=== PATIENT | female | born 1970 | race Caucasian/White ===

== ENCOUNTER 2016-04-06 08:15 | Emergency (ER) | payer BC ==
[~2016-04-06] VITALS: Ht 170.2 cm; Wt 118.0 kg
[~2016-04-06 08:15] MED LIST: AMOXMIS3 PO; LEVO150T PO; OMEP40CA36 PO
[2016-04-06 08:18] VITALS: TEMP 36.7; Ht 170.2 cm; Wt 118.0 kg
[2016-04-06] MEDS ORDERED: ONDANSETRON INJ 2 MG/ML 2 ML VIAL IV STA (08:57)
[2016-04-06] MEDS ORDERED: MECLIZINE HCL 25 MG TAB PO STA (08:57)
[2016-04-06] MEDS ORDERED: SODIUM CHLORIDE 0.9% 1000ML 1,000 ML IV ONE (09:00)
[2016-04-06] MEDS ORDERED: OMEP40CA41 PO (09:21)
[2016-04-06 09:31] LABS: BASO % 0.6 %; BASO ABS # 0.04 K/uL (0-0.2); COMPLETE YES; EOS % 0.7 %; HEMATOCRIT 38.3 % (37-47); IG% 0.3 %; LYMPH % 24.6 %; LYMPH ABS # 1.73 K/uL (1.2-3.4); MEAN CELL VOLUME 89.1 fL (80-100); MEAN CORPUSCULAR HEMOGLOBIN 31.4 pg (25-34); MEAN CORPUSCULAR HGB CONC 35.2 g/dl (32-36); MEAN PLATELET VOLUME 10.6 fL (7.4-10.4); MONO % 7.7 %; NEUT % 66.1 %; PLATELET COUNT 196 K/uL (130-400); WHITE BLOOD COUNT 7.04 K/uL (4.8-10.8)
[2016-04-06 09:47] LABS: PROTHROMBIN TIME (PATIENT) 10.2 SECONDS (9.0-12.0)
[2016-04-06 09:58] LABS: ALKALINE PHOSPHATASE 82 U/L (45-117); ALT/SGPT 32 U/L (12-78); AST/SGOT 15 U/L (15-37); BLOOD UREA NITROGEN 10 mg/dl (7-18); BUN/CREATININE RATIO 16.1 (10-20); CALCIUM 9.7 mg/dl (8.5-10.1); CARBON DIOXIDE 25 mmol/L (21-32); CHLORIDE 107 mmol/L (98-107); CREATININE 0.61 mg/dl (0.60-1.20); GLUCOSE 107 mg/dl (70-99); POTASSIUM 4.3 mmol/L (3.5-5.1); SODIUM 141 mmol/L (136-145)
[2016-04-06 10:00] LABS: THYROID STIMULATING HORMONE 0.011 uIu/ml (0.300-4.500)
[2016-04-06] MEDS ORDERED: MECL-91 PO (10:30)
[2016-04-06 10:58] VITALS: BP 158/80; PULSE 66; O2SAT 97
--- NOTE | 2016-04-07 19:30 | EMERGENCY ROOM VISIT NOTE ---
ED Visit Note First contact with patient: 08:26 Chief Complaint: Dizziness and rectal pain. History of Present Illness: Ms. Villagomez is a 45-year-old white female who ambulates into the ED accompanied by her complaining of dizziness and rectal pain. Historically patient reports she has a history of recurrent dizziness for many years following a thyroid dysfunction. Her symptoms have been well-controlled. She also reports a history of hypothyroidism. Patient reports yesterday she started having some mild dizziness at work. Her dizziness worsened with positional changes and head movements. She did not take any medication for her dizziness. She has some mild nausea and a mild headache. Since that time she reports her dizziness has increased in intensity and today while showering she reports she had a near syncopal episode with tunnel vision and felt like she was going to pass out. Currently she is still having her head discomfort. She places her discomfort globally. She describes it as a mild achy sensation. She rates her discomfort 2/10. Her pain is nonradiating. She has not identified any aggravating or alleviating factors related to the pain. With the exception of her dizziness and nausea she has no associated symptoms. Additionally she does report that she had a transient episode of a burning sensation in her chest that is similar to her GERD symptoms last week while at rest. She denies recent head trauma, lightheadedness, visual changes, hearing changes , difficulty speaking, difficulty swallowing, difficulty ambulating/ coordinating body movements, upper respiratory tract symptoms, neck pain/ stiffness, shortness of breath, chest pain, abdominal pain, extremity weakness/ numbness/tingling, back pain. Additionally patient is complaining of rectal pain. Patient reports for the last few weeks she has a severe sharp pain with bowel movement. Her pain resolves after her bowel movement. She has not identified any other aggravating or alleviating factors. She has not taken any medications for her pain prior to arrival at the hospital. Associated with her pain she reports there is some bright red blood on the toilet tissue after her bowel movement and one time there was a small amount of blood in the toilet bowl. She denies any associated abdominal pain, abnormal or unusual bleeding, constipation, diarrhea, black/tarry stools, nausea, vomiting, genital paresthesias, back pain. Review of Systems: As noted above in history of present illness. All body systems were reviewed and found to be negative as noted above. Past Medical History: As previously noted. Current Medications: Synthroid, Prilosec. Allergies to Medications: Patient denies. Social History: Patient is currently employed; she feels safe in her home environment; Physical Examination: Vital Signs: Date Time Temp Pulse Resp B/P Pulse Ox O2 Delivery O2 Flow Rate FiO2 04/06/16 10:58 66 20 158/80 97 04/06/16 09:40 72 134/83 69 145/94 71 155/89 04/06/16 09:29 68 04/06/16 09:26 65 15 145/75 100 Room Air 04/06/16 08:18 36.7 81 18 155/88 98 Room Air GENERAL: 45-year-old female in mild distress due to dizziness, nontoxic- appearing, afebrile and hemodynamically stable. NEUROLOGICAL: Awake, alert and oriented to person, place and time. Answering questions appropriately and following commands. Normal gait. Good hand eye coordination. No focal motor sensory deficits. Cranial nerves II through XII grossly intact. Good short-term and long-term recall. Able to spell when count backwards. Normal rapid alternating movements of the hands and fingers. SKIN: Warm, dry and pink. No soft tissue eruptions or trauma noted. HEENT: Atraumatic and normocephalic. PERRLA. EOMI without nystagmus. Sclera white and conjunctiva pink. No drainage from naris. Oral cavity moist and pink. Pharynx is nonerythematous or edematous. Speech normal. No lymphadenopathy. Trachea midline. No jugular venous distention. BACK: No tenderness over the bony spine. No meningismus. Full range of motion of the cervical spine. No CVA tenderness. THORAX: Lungs sounds are clear to auscultation and equal bilaterally with symmetrical chest wall. No wheezing, rales or rhonchi. No crepitus, tenderness , subcutaneous air or deformities noted. HEART: Regular rate and rhythm. No gallops, rubs or murmurs are appreciated. ABDOMEN: Obese, soft and nontender. Positive bowel sounds in all quadrants. No guarding, rigidity or organomegaly. RECTAL: External hemorrhoid at the 6 o'clock position. Normal rectal tone. Palpable rectal hemorrhoid at the 9 o'clock position. No stool impaction. Heme -negative stools. EXTREMITIES: Moves all extremities well on command and with purpose. All distal neurovascular statuses are intact and equal bilaterally. No calf tenderness or cords. ED Course: Patient is assessed as noted above. Laboratory testing: Test 04/06/16 09:20 Range/Units White Blood Count 7.04 4.8-10.8 K/uL Red Blood Count 4.30 4.2-5.4 M/uL Hemoglobin 13.5 12.0-16.0 g/dL Hematocrit 38.3 37-47 % Mean Corpuscular Volume 89.1 80-100 fL Mean Corpuscular Hemoglobin 31.4 25-34 pg Mean Corpuscular Hemoglobin Concent 35.2 32-36 g/dl Platelet Count 196 130-400 K/uL Mean Platelet Volume 10.6 7.4-10.4 fL Neutrophils (%) (Auto) 66.1 % Lymphocytes (%) (Auto) 24.6 % Monocytes (%) (Auto) 7.7 % Eosinophils (%) (Auto) 0.7 % Basophils (%) (Auto) 0.6 % Neutrophils # (Auto) 4.66 1.4-6.5 K/uL Lymphocytes # (Auto) 1.73 1.2-3.4 K/uL Monocytes # (Auto) 0.54 0.11-0.59 K/uL Eosinophils # (Auto) 0.05 0-0.5 K/uL Basophils # (Auto) 0.04 0-0.2 K/uL RDW Standard Deviation 41.4 36.4-46.3 fL RDW Coefficient of Variation 12.9 11.5-14.5 % Immature Granulocyte % (Auto) 0.3 % Immature Granulocyte # (Auto) 0.02 0.00-0.02 K/uL Prothrombin Time 10.2 9.0-12.0 SECONDS Prothromb Time International Ratio 1.0 0.9-1.1 Activated Partial Thromboplast Time 25.3 21.0-31.0 SECONDS Partial Thromboplastin Ratio 1.0 Sodium Level 141 136-145 mmol/L Potassium Level 4.3 3.5-5.1 mmol/L Chloride Level 107 98-107 mmol/L Carbon Dioxide Level 25 21-32 mmol/L Anion Gap 9.0 3-11 mmol/L Blood Urea Nitrogen 10 7-18 mg/dl Creatinine 0.61 0.60-1.20 mg/dl Est Creatinine Clear Calc Drug Dose 153.1 ml/min Estimated GFR () 126.0 Estimated GFR (Non- 108.7 BUN/Creatinine Ratio 16.1 10-20 Random Glucose 107 70-99 mg/dl Calcium Level 9.7 8.5-10.1 mg/dl Total Bilirubin 0.4 0.2-1 mg/dl Direct Bilirubin < 0.1 0-0.2 mg/dl Aspartate Amino Transf (AST/SGOT) 15 15-37 U/L Alanine Aminotransferase (ALT/SGPT) 32 12-78 U/L Alkaline Phosphatase 82 45-117 U/L Total Protein 7.5 6.4-8.2 gm/dl Albumin 3.7 3.4-5.0 gm/dl Thyroid Stimulating Hormone (TSH) 0.011 0.300-4.500 uIu/ml Free Thyroxine 1.02 0.80-1.60 ng/dl Free Triiodothyronine 3.40 2.30-4.20 pg/ml EKG: Was read by myself and reviewed with Dr. Villatoro; shows normal sinus rhythm with a left bundle-branch block. Ventricular rate 70 bpm; I did compare this to previous and at that time and at that time patient was in atrial fibrillation with a left bundle-branch. Patient was hydrated with normal saline and received 4 mg of Zofran IV for nausea and 50 mg of Meclizine by mouth for dizziness. Patient was reassessed multiple times during her stay in the emergency department. Patient's case was reviewed with Dr. Villatoro; we agreed on diagnostic approach, treatment, disposition and plan. Patient was educated about tonight's findings and instructed on her treatment plan; she verbalizes understanding and agreement with this plan. Clinical Impression: Dizziness. Rectal pain. Disposition: Patient discharged home in stable condition accompanied by her ; prior to departure she was reassessed and subjectively reported she was feeling much better. Plan: Patient was encouraged to use acetaminophen 650 mg every 6 hours for headache or other pain. Patient was prescribed 25 mg of Meclizine every 6 hours for dizziness. Patient was encouraged use [id number] stool softener to soften her stool and follow-up with batching operator for her internal hemorrhoids. Patient was encouraged to follow-up with her family doctor to review her thyroid results and possible adjustment of medication. Patient was encouraged return the ED for worsening headache, worsening dizziness , vomiting, any abnormal neurological symptoms, worsening rectal bleeding or any new/concerning symptoms.
== END 2016-04-06 11:00 | disposition home or self-care (01) ==
LOC: C.EDB 08:17
DX: R42 Dizziness and giddiness (principal); K62.89 Other specified diseases of anus and rectum; E03.9 Hypothyroidism, unspecified